=== PATIENT | male | born 1975 | race Caucasian/White ===

== ENCOUNTER 2019-12-25 12:53 | Emergency (ER) | payer MEDICAID, SELFPAY ==
[2019-12-25 13:01] VITALS: BP 135/78; PULSE 88; RESP 15; TEMP 36.6; O2SAT 100
--- NOTE | 2019-12-25 13:15 | W.ED.GENAD ---
Discharge Plan Disposition Patient Disposition: HOME Condition: Stable Discharge Details Clinical Impression: Lumbago with sciatica, left side Primary Care Provider: [facility] Provider: Cheri Watson Home Meds and New Rx's Prescriptions: New ketorolac 10 mg tablet 10 mg PO Q8H PRN (Reason: pain) 4 Days Qty: 10 RF: 0 diazepam 2 mg tablet 2 mg PO BID PRN2 Days Qty: 4 RF: 0 Discharge Instructions Instructions: Low Back Strain (ED) Additional Instructions: Follow up with primary care provider in 3-5 days. Return to ED sooner if any worsening or concerns. Increase oral fluids. Please take Tylenol or Ibuprofen with food every 4-6 hours as needed for pain and swelling. Take medications as prescribed. You are placed on a care management list to help establish care with primary care provider. Discharge Data Discharge Date/Time-TO BE ENTERED AT DEPARTURE: 12/25/19 13:25 Medical Decision Making 35-year-old male presents to the ED with lower back pain which radiates into his left buttock which began yesterday. 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 He denies any saddle anesthesia, no nausea, no numbness tingling in his legs no loss of bowel or bladder control. He is requesting some Toradol and diazepam to go home. He does not have a PCP at this time. Will place him on a care management list to establish care. Patient was given a to go bottle of tramadol. Prescription given for diazepam No. 4 tablets and Toradol as patient requested. Placed on care management list to establish primary care provider. HPI General Mode of arrival: ambulatory. Date/Time Provider Initiated Documentation: 12/25/19 13:08. Limitations to Documentation: no limitations. Information obtained by: patient. HPI Narrative: 35-year-old male presents to the ED with lower back pain which radiates into his left buttock which began yesterday. 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 He denies any saddle anesthesia, no nausea, no numbness tingling in his legs no loss of bowel or bladder control. He is requesting some Toradol and diazepam to go home. He does not have a PCP at this time. Will place him on a care management list to establish care. Related Data Home Medications Medication Instructions Recorded Confirmed diazepam 2 mg PO BID PRN 2 Days #4 tab 12/25/19 ketorolac 10 mg PO Q8H PRN 4 Days #10 tab 12/25/19 Previous Rx's Medication Instructions Recorded diazepam 2 mg PO BID PRN 2 Days #4 tab 12/25/19 ketorolac 10 mg PO Q8H PRN 4 Days #10 tab 12/25/19 Allergies Allergy/AdvReac Type Severity Reaction Status Date / Time cyclobenzaprine Allergy Hard to Unverified 12/25/19 13:06 [From Flexeril] breathe General Stated Complaint: Nk/Back Pain IRAIDA: 4 Review of Systems All systems reviewed & are unremarkable except as noted in HPI and below Constitutional Constitutional: Reports as per HPI, Denies chills, Denies fever(s), Denies frequent falls, Denies headache(s), Denies malaise and Denies weakness ENT Ears, Nose, Mouth, and Throat: Denies headache(s) Musculoskeletal Musculoskeletal: Reports as per HPI and Reports back pain (Lower lumbar radiating into left buttock denies any numbness tingling) Neurologic Neurologic: Denies frequent falls, Denies headache(s) and Denies weakness [facility] Social History Smoking/Tobacco Use Status: Current every day Smoking risk assessment performed?: Yes Alcohol Intake: never Substance use type: does not use Do you feel safe at home: Yes Do you feel safe in your relationship?: Yes Exam Narrative Exam Narrative: Constitutional: Alert and oriented x3. Appears stated age. Normal body habitus. Head: Normocephalic, no trauma. Chest: RRR, Normal S1, S2, distal pulses intact. Resp: Lungs clear to auscultation bilaterally, no wheezes, rales, or rhonchi. Musculoskeletal: Normal gait, 5/5 strength to all four extremities. Skin: No suspicious rashes or lesions. Capillary refill less than 2 sec. Neurologic: Cranial nerves II-XII intact. Alert and oriented x 3. DTR's intact. Course Vital Signs Vital signs: Vital Signs Temperature 36.6 C 12/25/19 13:01 Pulse 88 12/25/19 13:01 Respiratory Rate 15 12/25/19 13:01 Blood Pressure 135/78 12/25/19 13:01 Pulse Oximetry 100 12/25/19 13:01 Temperature 36.6 C 12/25/19 13:01 Temperature Source Temporal Artery Scan 12/25/19 13:01 Pulse 88 12/25/19 13:01 Respiratory Rate 15 12/25/19 13:01 Respiratory Effort Non-Labored 12/25/19 13:04 Blood Pressure 135/78 12/25/19 13:01 Blood Pressure Position Sitting 12/25/19 13:01 Pulse Oximetry 100 12/25/19 13:01 Oxygen Delivery Method Room Air 12/25/19 13:01 Oxygen Flow Rate 0 12/25/19 13:01 Pain Level 7 12/25/19 13:06
[2019-12-25 13:27] VITALS: BP 135/78; PULSE 88; RESP 15; TEMP 36.6; O2SAT 100
--- NOTE | 2019-12-26 18:50 | CMPROGNOTE_ITS ---
- If Service Date Differs Date of service: 12/26/19 Time of Service: 18:50 Care Management Progress Note Son is seen in the ED on 12/25/19 for lumbago with sciatica on the left side. At the request of ED provider, HARITHA coordinates a referral to Nicole Ozuna np, on-call provider, of [facility], to assist Son in obtaining a follow up appointment and in establishing care with a PCP. He has Medicaid for insurance.
== END 2019-12-25 13:25 | disposition home or self-care (01) ==
PROVIDERS: Emergency Provider Registered Nurse Emergency
DX: M54.42 Lumbago with sciatica, left side (principal)
CPT/HCPCS: 99283

== ENCOUNTER 2019-12-28 10:37 | Emergency (ER) | payer MEDICAID, SELFPAY ==
[2019-12-28 10:40] VITALS: BP 123/55; PULSE 91; TEMP 36.7; O2SAT 98
--- NOTE | 2019-12-28 10:50 | ED.GENADUL_ITS ---
Discharge Plan Disposition Patient Disposition: HOME Condition: Stable Discharge Details Clinical Impression: Lumbago with sciatica, left side [facility] Home Meds and New Rx's Prescriptions: New ketorolac 10 mg tablet 10 mg PO Q6H PRN7 Days Qty: 30 RF: 0 diazepam 10 mg tablet 10 mg PO BID PRN (Reason: muscle spasm) Qty: 14 RF: 0 Discontinued diazepam 2 mg tablet 2 mg PO BID RF: 0 ketorolac 10 mg tablet 10 mg PO Q8H PRN (Reason: pain) 4 Days Qty: 10 RF: 0 Discharge Instructions Instructions: Back Pain (ED), Lower Back Exercises (ED) Additional Instructions: follow up as scheduled with your primary care provider if you have severe worsening pain, difficulty urinating or worsening weakness return to the emergency department Stand Alone Forms: Physical Therapy Referral Medical Decision Making 44 yo male who states he gets flares of lower back pain comes in with continued back pain. Was seen in the ED on 12/24 and put on diazepam and toradol which have helped but would like more as he is out and can't get into his pcp until next week. Denies fevers, falls/trauma, difficulty urinating or with bowel movements, no weakness, no ivdu. localizes the pain to the left lower back, has no saddle anesthesia, normal strength and sensation in the legs and normal pulses. Exam and history seems most likely from musculoskeletal pain, no findings to suggest sea or cauda equina and do not feel mri indicated. HAs no findings to suggest fx or osteo so do not feel xray or ct indicated. Will continue toradol and diazepam and start PT, f/u with pcp and return precautions given Differential Diagnosis Differential Diagnosis: strain, disc herniation, spasm HPI General Mode of arrival: ambulatory . Date/Time Provider Initiated Documentation: 12/28/19 10:38 . Limitations to Documentation: no limitations . Information obtained by: patient . History of Present Illness 44 year old M presents to the emergency department with the chief complaint of low back pain, described as moderate, and it has been constant. No relieving factors improve symptom(s), No exacerbating factors reported . Patient notes no other symptoms.. Related Data Home Medications Medication Instructions Recorded Confirmed diazepam 10 mg PO BID PRN #14 tab 12/28/19 ketorolac 10 mg PO Q6H PRN 7 Days #30 tab 12/28/19 Previous Rx's Medication Instructions Recorded diazepam 10 mg PO BID PRN #14 tab 12/28/19 ketorolac 10 mg PO Q6H PRN 7 Days #30 tab 12/28/19 Allergies Allergy/AdvReac Type Severity Reaction Status Date / Time cyclobenzaprine Allergy Hard to Unverified 12/28/19 10:43 [From Flexeril] breathe General Stated Complaint: Nk/Back Pain IRAIDA: 3 Review of Systems All systems reviewed & are unremarkable except as noted in HPI and below Constitutional Constitutional: Denies chills, Denies fever(s) and Denies weakness Cardiovascular Cardiovascular: Denies chest pain and Denies dyspnea Respiratory Respiratory: Denies cough and Denies dyspnea Gastrointestinal Gastrointestinal: Denies abdominal pain, Denies nausea and Denies vomiting Genitourinary Genitourinary: Denies dysuria Musculoskeletal Musculoskeletal: Denies joint swelling Integumentary/Breasts Skin/Breast: Denies rash Neurologic Neurologic: Denies weakness Psychiatric Psychiatric: Denies depression [facility] Social History Smoking/Tobacco Use Status: Current every day Smoking risk assessment performed?: Yes Alcohol Intake: never Substance use type: does not use Do you feel safe at home: Yes Do you feel safe in your relationship?: Yes Exam Const General: no acute distress Orientation: alert HENMT Head: normal to inspection Ears: external ears normal General nose exam: external nose normal Mouth: moist mucous membranes Eyes General: appearance normal, both eyes and all related structures Neck Neck: normal visual inspection Resp Effort & Inspection: normal respiratory effort and able to speak in complete sentences Cardio Rate: regular rate Back/Spine/Pelvis Back: no CVA tenderness Skin General skin exam: no rashes or lesions noted Neuro General: patient alert and patient oriented x3 Extrem General: normal to inspection Psych Mental Status: mental status grossly normal Course Vital Signs Vital signs: Vital Signs Temperature 36.7 C 12/28/19 10:40 Pulse 91 H 12/28/19 10:40 Blood Pressure 123/55 L 12/28/19 10:40 Pulse Oximetry 98 12/28/19 10:40 Temperature 36.7 C 12/28/19 10:40 Temperature Source Temporal Artery Scan 12/28/19 10:40 Pulse 91 H 12/28/19 10:40 Respiratory Effort Non-Labored 12/28/19 10:45 Blood Pressure 123/55 L 12/28/19 10:40 Blood Pressure Position Sitting 12/28/19 10:40 Pulse Oximetry 98 12/28/19 10:40 Oxygen Delivery Method Room Air 12/28/19 10:40 Oxygen Flow Rate 0 12/28/19 10:40 Pain Level 8 12/28/19 10:40
== END 2019-12-28 10:57 | disposition home or self-care (01) ==
LOC: ER 10:51
PROVIDERS: Emergency Provider Emergency Medicine
DX: M54.42 Lumbago with sciatica, left side (principal)
CPT/HCPCS: 99283

== ENCOUNTER 2021-03-11 16:22 | Emergency (ER) | payer MEDICAID, SELFPAY ==
[2021-03-11 16:25] VITALS: BP 128/80; PULSE 81; RESP 18; TEMP 37; O2SAT 98
--- NOTE | 2021-03-11 16:50 | W.ED.GENAD ---
Discharge Plan Disposition Patient Disposition: HOME Condition: Stable Discharge Details Clinical Impression: Trouble in sleeping, Anxiety Primary Care Provider: Unknown,Unknown ED Provider: Cheri Watson Home Meds and New Rx's Prescriptions: New melatonin 5 mg capsule 5 mg PO QHS PRN (Reason: sleep) 14 Days Qty: 14 RF: 0 diazepam 2 mg tablet 2 mg PO BID PRN (Reason: anxiety) Qty: 7 RF: 0 No Action diazepam 10 mg tablet 10 mg PO BID PRN (Reason: muscle spasm) Qty: 14 RF: 0 clonazepam 1 mg tablet 1 mg PO TID RF: 0 prazosin 5 mg capsule 5 mg PO DAILY RF: 0 olanzapine 2.5 mg tablet 2.5 mg PO DAILY RF: 0 Discharge Instructions Instructions: Grief and Loss (ED), Insomnia (ED), Anxiety (ED) Additional Instructions: Please take the melatonin approximately 30 minutes prior to bedtime he may get this [id number] and I have also sent a prescription to the pharmacy on file. Take the diazepam twice daily as needed for anxiety. The prescriptions were sent to [facility] in [place]. Please follow-up with your psychologist regarding medication changes if needed. Follow up with primary care provider in 3-5 days. Return to ED sooner if any worsening, any thoughts of harming yourself or others, or concerns. Increase oral fluids. Discharge Data Discharge Date/Time-TO BE ENTERED AT DEPARTURE: 03/11/21 17:07 Medical Decision Making 46-year-old male presents to the ER chief complaint difficulty sleeping for the last 4 days, increasing anxiety. Patient reports that he recently lost his son and his father just he is in town for on Tuesday. Reports that he has a past medical history of PTSD and anxiety. He takes olanzapine, prazosin and clonazepam which he reports are not doing anything for me. He denies any suicidal ideation or homicidal ideation. He has not done anything in the last couple of days to hurt himself. He denies any drugs or alcohol and denies taking any extra of his medications. He is requesting something to sleep. He denies any other associated symptoms. He does not want to speak with mental health at this time. Patient states he has an appointment with provider in [place] on the of this month. He is requesting medication to help him sleep for the next few days until the on Tuesday. At this time he is denying any suicidal ideation or homicidal ideation he does not wish to speak with mental health. I did discuss different strategies to help sleep including melatonin did offer hydroxyzine which patient states that he has taken before. He is requesting that I change his medications. I did discuss that that would be better to be done through his psychiatric provider from [place] or his primary care provider. I did give him approximately 7 tablets of 2 mg of diazepam and prescription sent for 5 mg of melatonin to aid in sleep. Did discuss strict return instructions to return if any worsening anxiety, thoughts of harming himself or others or any concerns. HPI General Mode of arrival: ambulatory. Date/Time Provider Initiated Documentation: 03/11/21 16:23. Limitations to Documentation: no limitations. Information obtained by: patient, RN notes reviewed and old records reviewed. HPI Narrative: 46-year-old male presents to the ER chief complaint difficulty sleeping for the last 4 days, increasing anxiety. Patient reports that he recently lost his son and his father just he is in town for on Tuesday. Reports that he has a past medical history of PTSD and anxiety. He takes olanzapine, prazosin and clonazepam which he reports are not doing anything for me. He denies any suicidal ideation or homicidal ideation. He has not done anything in the last couple of days to hurt himself. He denies any drugs or alcohol and denies taking any extra of his medications. He is requesting something to sleep. He denies any other associated symptoms. He does not want to speak with mental health at this time. Related Data Home Medications Medication Instructions Recorded Confirmed diazepam 10 mg PO BID PRN #14 tab 12/28/19 clonazepam 1 mg PO TID 03/11/21 03/11/21 diazepam 2 mg PO BID PRN #7 tab 03/11/21 melatonin 5 mg PO QHS PRN 14 Days #14 cap 03/11/21 olanzapine 2.5 mg PO DAILY 03/11/21 03/11/21 prazosin 5 mg PO DAILY 03/11/21 03/11/21 Previous Rx's Medication Instructions Recorded diazepam 10 mg PO BID PRN #14 tab 12/28/19 diazepam 2 mg PO BID PRN #7 tab 03/11/21 melatonin 5 mg PO QHS PRN 14 Days #14 cap 03/11/21 Allergies Allergy/AdvReac Type Severity Reaction Status Date / Time cyclobenzaprine Allergy Hard to Unverified 03/11/21 16:44 [From Flexeril] breathe General Stated Complaint: PsychEval IRAIDA: 2 Review of Systems All systems reviewed & are unremarkable except as noted in HPI and below Psychiatric Psychiatric: Reports abnormal sleep pattern, Reports anxiety, Denies auditory hallucinations, Reports panic attacks, Denies tactile hallucinations, Denies homicidal ideation and Denies suicidal ideation PFSH All Active Problems (Updated 03/11/21 @ 17:01 by Cheri Watson) Trouble in sleeping (Acute) Anxiety (Chronic) Social History Smoking/Tobacco Use Status: Current every day Smoking risk assessment performed?: Yes Alcohol Intake: never Substance use type: does not use Do you feel safe at home: Yes Do you feel safe in your relationship?: Yes Exam Narrative Exam Narrative: Constitutional: Alert and oriented x3. Appears stated age. Normal body habitus. Head: Normocephalic, no trauma. Eyes: Pupils PERRL, Red reflex noted, EOM's intact. Eyelids symmetrical without lesions, discharge, or swelling. ENT: Bilateral TM's WNL, External ear normal to inspection, no mastoid TTP, swelling, or erythema, Nasal turbinates WNL, no nasal discharge. Normal dentition, Posterior pharynx WNL, no exudate. Chest: RRR, Normal S1, S2, distal pulses intact. Resp: Lungs clear to auscultation bilaterally, no wheezes, rales, or rhonchi. Abdomen: Soft, non-distended, Normoactive bowel sounds all 4 quads. Musculoskeletal: Normal gait, 5/5 strength to all four extremities. Skin: No suspicious rashes or lesions. Capillary refill less than 2 sec. Neurologic: Cranial nerves II-XII intact. Alert and oriented x 3. Motor: No deficits noted. Sensory: Intact bilaterally all 4 extremities. Reflexes: DTR's intact bilaterally.. Hematologic/Lymphatic: No ecchymosis, no lymphadenopathy. Psych Appearance: grossly normal Speech and Movement: pressured speech Mood: anxious mood Attitude: cooperative Thought Process: flight of ideas Thought Content: normal and suicidality Insight: insight good Judgment: judgment good Course Vital Signs Vital signs: Vital Signs Temperature 37 C 03/11/21 16:25 Pulse 81 03/11/21 16:25 Respiratory Rate 18 03/11/21 16:25 Blood Pressure 128/80 03/11/21 16:25 Pulse Oximetry 98 03/11/21 16:25 Temperature 37 C 03/11/21 16:25 Temperature Source Skin 03/11/21 16:25 Pulse 81 03/11/21 16:25 Respiratory Rate 18 03/11/21 16:25 Respiratory Effort 03/11/21 16:40 Blood Pressure 128/80 03/11/21 16:25 Pulse Oximetry 98 03/11/21 16:25 Oxygen Delivery Method Room Air 03/11/21 16:25 Oxygen Flow Rate 0 03/11/21 16:25 Pain Level 0 03/11/21 16:25
== END 2021-03-11 17:07 | disposition home or self-care (01) ==
PROVIDERS: Emergency Provider Registered Nurse Emergency
DX: F41.9 Anxiety disorder, unspecified (principal); G47.00 Insomnia, unspecified
CPT/HCPCS: 99283

== ENCOUNTER 2021-04-19 09:22 | Emergency (ER) | payer MEDICAID, SELFPAY ==
[2021-04-19 09:24] VITALS: BP 120/77; PULSE 81; RESP 16; TEMP 36.6; O2SAT 97
--- NOTE | 2021-04-19 09:31 | ED.GENADUL_ITS ---
Discharge Plan Disposition Patient Disposition: HOME Condition: Improving Discharge Details Clinical Impression: Major depression Primary Care Provider: Unknown,Unknown ED Provider: Le Donovan Home Meds and New Rx's Prescriptions: Continued prazosin 5 mg capsule 5 mg PO HS 0RF olanzapine 5 mg tablet 5 mg PO DAILY 0RF Label Comments: TAKE ONE TABLET BY MOUTH EVERY DAY hydroxyzine HCl 50 mg tablet 50 mg PO HS 0RF Label Comments: TAKE ONE TABLET BY MOUTH FOUR TIMES A DAY risperidone 3 mg tablet 3 mg PO HS 0RF Label Comments: TAKE ONE TABLET BY MOUTH EVERY EVENING diazepam 10 mg tablet 10 mg PO TID 0RF Label Comments: TAKE ONE TABLET BY MOUTH THREE TIMES A DAY NEEDED buprenorphine-naloxone 8-2 mg tablet, sublingual 3 tab SUBLINGUAL DAILY 0RF Label Comments: PLACE THREE TABLETS UNDER THE TONGUE EVERY DAY Discharge Instructions Instructions: Depression (ED) Additional Instructions: 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 Call [facility] tomorrow at [phone] for follow-up. Return immediately to the emergency department if you develop any worsening or new concerning symptoms. Discharge Data Discharge Date/Time-TO BE ENTERED AT DEPARTURE: 04/19/21 19:19 Discharge Physician: Le Donovan Medical Decision Making 1000 -- 46-year-old male with a history of anxiety, depression, paranoid schizophrenia and narcotic abuse in remission currently on Suboxone for the past several years presents from home for depression for several weeks. He has not taken his meds for a few days but is willing to restart them. Vitals within normal limits. Patient appears alert and oriented and cooperative. Patient states he has thoughts of suicide at times and denies a current suicidal plan but states I could have access to firearms if I wanted to. We will obtain screening labs for medical clearance and have mental health evaluate. As patient has not had any of his medications, will order his scheduled medications. Will hold on Valium as long as possible pending mental health evaluation. 1130 -- Labs reviewed. Patient medically cleared. 1500 -- mental health tried to evaluate but patient too sleepy, likely secondary to taking his scheduled Valium. They will reevaluate at 5 PM. 1730 -- Patient evaluated by mental health --he is currently denying any suicidal or homicidal ideation and he is cleared for discharge. Pt states he feels much better after receiving his meds here and would like to be discharged. Patient states he cannot return to his apartment due to the no stalking order from his fianc?e but plans to call [address] to sleep tonight[address] He denies having any access to firearms where he will be staying tonight. Patient states he can go to [facility] tomorrow for his medication. He is requesting a dose of Suboxone for the morning if possible. [facility] [facility] states that patient will follow up with him tomorrow. 1829 -- Patient's jitendra has called the hospital multiple times over the last few hours and she was advised that pt cannot take the call pending mental health evaluation. She is currently on the phone at this time and patient is willing to speak with her now that he cleared for discharge. 1899 -- Patient was given his Suboxone dose to go for tomorrow morning. He is advised to go to [facility] tomorrow for the remainder of his medications. He was given [facility] number for follow-up tomorrow. Usual and customary return precautions given prior to discharge. Medical Records Medical records reviewed: Yes I reviewed the patient's medical records. Lab Data Lab results reviewed: Yes I reviewed the patient's lab results. Labs: Laboratory Tests Range/Units 04/19/21 04/19/21 04/19/21 10:25 10:35 10:35 WBC (4.4-10.8) 10^3/uL 3.73 L RBC (4.36-5.78) 10^6/uL 3.94 L Hgb (13.5-17.5) g/dL 12.9 L Hct (40.0-50.0) % 40.0 MCV (80-95) fL 101.5 H MCH (27.0-33.0) pg 32.7 MCHC (32.0-36.0) % 32.3 RDW (11.8-14.1) % 14.5 H Plt Count (130-400) 10^3/uL 155 MPV (8.0-11.0) fL 9.0 Immature Gran % 0.3 Neutrophils % 51.2 Lymphocytes % 30.0 Monocytes % 16.4 Eosinophils % 1.3 Basophils % 0.8 Nucleated RBC % % 0 Absolute Neutrophils (1.2-6.7) 10^3/uL 1.91 Absolute Lymphocytes (1.2-3.4) 10^3/uL 1.12 L Absolute Monocytes (0.1-0.8) 10^3/uL 0.61 Absolute Eosinophils (0.0-0.7) 10^3/uL 0.05 Absolute Basophils (0.0-0.2) 10^3/uL 0.03 Sodium (136-145) mmol/L 141 Potassium (3.5-5.1) mmol/L 4.1 Chloride (98-107) mmol/L 105 Carbon Dioxide (21.0-32.0) mmol/L 29.9 Anion Gap (3-11) mmol/L 6.1 BUN (7-18) mg/dL 11 Creatinine (0.70-1.30) mg/dL 1.0 Estimated GFR/1.73 m2 (mL/min/1.73m2) >= 60.00 Glucose (74-106) mg/dL 108 H Calcium (8.5-10.1) mg/dL 8.1 L Total Bilirubin (0.2-1.0) mg/dL 0.4 AST (15-37) U/L 56 H ALT (16-63) U/L 53 Alkaline Phosphatase (46-116) U/L 83 Total Protein (6.4-8.2) g/dL 7.0 Albumin (3.4-5.0) g/dL 3.5 TSH (0.36-3.74) uIU/mL 2.48 Urine Opiates Screen (Negative) Urine Methadone Screen (Negative) Ur Barbiturates Screen (Negative) Ur Tricyclics Screen (Negative) Ur Amphetamines Screen (Negative) U Benzodiazepines Scrn (Negative) Urine Cocaine Screen (Negative) Ur THC Screen (Negative) Ethyl Alcohol (<10) mg/dL < 3.0 COVID-19 Source Nasal/Nares SARS-CoV-2 (PCR) (Negative) Negative Range/Units 04/19/21 10:50 WBC (4.4-10.8) 10^3/uL RBC (4.36-5.78) 10^6/uL Hgb (13.5-17.5) g/dL Hct (40.0-50.0) % MCV (80-95) fL MCH (27.0-33.0) pg MCHC (32.0-36.0) % RDW (11.8-14.1) % Plt Count (130-400) 10^3/uL MPV (8.0-11.0) fL Immature Gran % Neutrophils % Lymphocytes % Monocytes % Eosinophils % Basophils % Nucleated RBC % % Absolute Neutrophils (1.2-6.7) 10^3/uL Absolute Lymphocytes (1.2-3.4) 10^3/uL Absolute Monocytes (0.1-0.8) 10^3/uL Absolute Eosinophils (0.0-0.7) 10^3/uL Absolute Basophils (0.0-0.2) 10^3/uL Sodium (136-145) mmol/L Potassium (3.5-5.1) mmol/L Chloride (98-107) mmol/L Carbon Dioxide (21.0-32.0) mmol/L Anion Gap (3-11) mmol/L BUN (7-18) mg/dL Creatinine (0.70-1.30) mg/dL Estimated GFR/1.73 m2 (mL/min/1.73m2) Glucose (74-106) mg/dL Calcium (8.5-10.1) mg/dL Total Bilirubin (0.2-1.0) mg/dL AST (15-37) U/L ALT (16-63) U/L Alkaline Phosphatase (46-116) U/L Total Protein (6.4-8.2) g/dL Albumin (3.4-5.0) g/dL TSH (0.36-3.74) uIU/mL Urine Opiates Screen (Negative) Negative Urine Methadone Screen (Negative) Negative Ur Barbiturates Screen (Negative) Negative Ur Tricyclics Screen (Negative) Negative Ur Amphetamines Screen (Negative) Negative U Benzodiazepines Scrn (Negative) Positive A Urine Cocaine Screen (Negative) Negative Ur THC Screen (Negative) Negative Ethyl Alcohol (<10) mg/dL COVID-19 Source SARS-CoV-2 (PCR) (Negative) HPI General Mode of arrival: EMS . Date/Time Provider Initiated Documentation: 04/19/21 09:31 . Limitations to Documentation: no limitations . Information obtained by: patient . HPI Narrative: Patient is a 46-year-old male with a history of anxiety, depression, paranoid schizophrenia, narcotic abuse in remission on Suboxone for several years presents for depression for several weeks with feelings of wanting to harm himself. Patient states he called the ambulance today. He states he has a no stalking order from his fianc?e due to verbal threats he made towards her. Patient states he has had significant loss in his life recently with the of his father and a divorce 1 year ago. Patient states these losses are making him feel there is no point in living anymore . He states he has had a previous suicide attempt a couple years ago after he was released from long-term in which he overdosed on pills and spent a few days in ICU in [place]. When asked if patient has a specific suicidal plan, he denies this. When asked if patient has access to firearms he stated I could get a gun if I wanted to . He states he has been verbally aggressive towards his fianc?e and at times has thought about physically hurting her but states I would never do that. Patient also stated that his fianc?e will likely call the ED multiple times today as she still loves me and wants to be with me but she wants me to get help. Patient also sta dinah that he has not taken his Suboxone or other psychiatric meds for the past few days. 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 Patient also states the rest of his medications are in his apartment but he cannot go there at this time due to the no stalking order and inability to be within 300 feet of his fiance. Patient is also unvaccinated for COVID and did have a positive Covid test on April 04. He states he has not had any symptoms at that time and denies any other symptoms at this time. Patient states that he was only given 2 days worth of his psychiatric medications by his psychiatrist so that he would check himself into the hospital to be placed at a psychiatric facility for his symptoms. Related Data Home Medications Medication Instructions Recorded Confirmed prazosin 5 mg capsule 5 mg PO HS 03/11/21 04/19/21 buprenorphine 8 mg-naloxone 2 mg 3 tab SUBLINGUAL DAILY 04/19/21 04/19/21 sublingual tablet diazepam 10 mg tablet 10 mg PO TID 04/19/21 04/19/21 hydroxyzine HCl 50 mg tablet 50 mg PO HS 04/19/21 04/19/21 olanzapine 5 mg tablet 5 mg PO DAILY 04/19/21 04/19/21 risperidone 3 mg tablet 3 mg PO HS 04/19/21 04/19/21 Allergies Allergy/AdvReac Type Severity Reaction Status Date / Time cyclobenzaprine Allergy Hard to Unverified 04/19/21 09:40 [From Flexeril] breathe General Stated Complaint: PsychEval IRAIDA: 2 Review of Systems All systems reviewed & are unremarkable except as noted in HPI and below Constitutional Constitutional: Reports as per HPI, Denies chills, Denies excessive sweating, Denies fatigue and Denies fever(s) Eyes Eyes: Denies blurry vision ENT Ears, Nose, Mouth, and Throat: Denies dizziness, Denies sore throat and Denies throat swelling Cardiovascular Cardiovascular: Denies chest pain and Denies dyspnea Respiratory Respiratory: Denies cough and Denies dyspnea Gastrointestinal Gastrointestinal: Denies abdominal pain, Denies diarrhea and Denies vomiting Genitourinary Genitourinary: Denies hematuria and Denies dysuria Musculoskeletal Musculoskeletal: Denies back pain and Denies numbness Integumentary/Breasts Skin/Breast: Denies lesions and Denies rash Neurologic Neurologic: Denies dizziness, Denies localized weakness and Denies numbness Psychiatric Psychiatric: Reports depression, Reports hopelessness, Reports homicidal ideation and Reports suicidal ideation Endocrine Endocrine: Denies excessive sweating and Denies fatigue Hematologic/Lymphatic Hematologic/Lymphatic: Denies easy bruising and Denies lymphadenopathy Allergic/Immunologic Allergic/Immunologic: Denies throat swelling PFSH All Active Problems (Updated 04/19/21 @ 18:49 by Le Donovan DO) Major depression (Chronic) Medical History (Updated 04/19/21 @ 18:49 by Le Donovan DO) Anxiety Depression Narcotic abuse in remission Paranoid schizophrenia Social History Smoking/Tobacco Use Status: Current every day Tobacco Type: cigarettes Smoking risk assessment performed?: Yes Alcohol Intake: never Drug use: Never Substance use type: does not use Do you feel safe at home: Yes Do you feel safe in your relationship?: Yes Exam Const General: cooperative and healthy appearing Orientation: alert, awake and oriented x3 HENMT Head: normal to inspection Ears: hearing grossly normal bilaterally, external ears normal and TM's normal bilaterally General nose exam: external nose normal Face and sinus: normal facial exam Mouth: oral mucosae normal Teeth and gingiva: dentition normal Throat: posterior oropharynx normal Eyes General: appearance normal, both eyes and all related structures Eyelids: eyelids normal Pupils: PERRL EOM: EOM intact bilaterally Neck Neck: normal visual inspection Lymphatic: no lymphadenopathy noted Chest Chest: normal inspection of the chest Resp Effort & Inspection: normal respiratory effort and able to speak in complete sentences Auscultation: clear to auscultation bilaterally Cardio Rate: regular rate Rhythm: regular rhythm GI Inspection: normal to inspection Palpation: soft, not firm, no guarding, no hepatosplenomegaly, no masses and nontender Auscultation: normal bowel sounds Back/Spine/Pelvis Back: no CVA tenderness Skin General skin exam: no rashes or lesions noted Neuro General: patient alert and patient awake Cognition: normal cognition Speech: speech normal Gait: normal gait Motor: muscle tone normal throughout Sensory Exam: no sensory deficits noted Extrem General: normal to inspection, full ROM and capillary refill normal Psych Appearance: grossly normal Mental Status: mental status grossly normal Speech and Movement: speech and movement normal Affect: normal affect Thought Process: normal
[2021-04-19 10:43] LABS: Source Nasal/Nares
[2021-04-19 10:47] LABS: Abs Immature Grans 0.01 10^3/uL (0.0-0.06); Absolute Basophil Count 0.03 10^3/uL (0.0-0.2); Absolute Eosinophil Count 0.05 10^3/uL (0.0-0.7); Absolute Lymphocyte Count 1.12 10^3/uL (1.2-3.4); Absolute Monocyte Count 0.61 10^3/uL (0.1-0.8); Absolute Neutrophil Count 1.91 10^3/uL (1.2-6.7); Basophils % 0.8; Eosinophils % 1.3; HGB 12.9 g/dL (13.5-17.5); Immature Grans % 0.3; MCH 32.7 pg (27.0-33.0); MCHC 32.3 % (32.0-36.0); MCV 101.5 fL (80-95); Monocytes % 16.4; Neutrophils % 51.2; Nucleated RBC 0 %; Platelet Count 155 10^3/uL (130-400); RBC 3.94 10^6/uL (4.36-5.78); RDW 14.5 % (11.8-14.1); RDW-SD 54.4 fL; WBC 3.73 10^3/uL (4.4-10.8)
[2021-04-19] MEDS: Buprenorphine/Naloxone 8 mg/2 mg FILM 3 EACH SL ×2 (10:51→19:09)
[2021-04-19 11:05] LABS: ALT 53 U/L (16-63); AST 56 U/L (15-37); Albumin 3.5 g/dL (3.4-5.0); Alkaline Phosphatase 83 U/L (46-116); Anion Gap 6.1 mmol/L (3-11); BUN 11 mg/dL (7-18); Bilirubin, Total 0.4 mg/dL (0.2-1.0); CO2 29.9 mmol/L (21.0-32.0); Calcium 8.1 mg/dL (8.5-10.1); Chloride 105 mmol/L (98-107); Glucose 108 mg/dL (74-106); Potassium 4.1 mmol/L (3.5-5.1); Sodium 141 mmol/L (136-145); TSH 2.48 uIU/mL (0.36-3.74)
[2021-04-19 11:06] LABS: ETHANOL BLOOD < 3.0 mg/dL (<10)
[2021-04-19 11:16] LABS: *AMPHETAMINES SCREEN URINE Negative (Negative); *BARBITURATES SCREEN URINE Negative (Negative); *BENZODIAZEPINES SCREEN URINE Positive (Negative); Cannabinoids THC Negative (Negative); Cocaine Screen,Urine Negative (Negative); METHADONE URINE SCREEN Negative (Negative); OPIATES URINE SCREEN Negative (Negative)
[2021-04-19 11:21] LABS: COVID-19 PCR Negative (Negative)
[2021-04-19 11:22] LABS: Tricyclic Antidepressants Negative (Negative)
--- NOTE | 2021-04-19 12:49 | NUR.NOTE ---
Nursing Note: Stefany Davies [phone]
--- NOTE | 2021-04-19 13:18 | NUR.NOTE ---
Nursing Note: Ronda, cousin called asking about the patient. Whether he was ok, awake, etc? I told her that I cannot give information out about patients without their permission. She gave me her phone number [phone]. Incidentally this is the same phone number as the fiance. Damaris Hopkins
[2021-04-19] MEDS: diazePAM 5 MG TAB 10 MG PO (13:58)
[2021-04-19] MEDS: OLANZapine 5 MG TAB PO (13:59)
--- NOTE | 2021-04-19 18:42 | PDOC.MHCN_ITS ---
Date of service: 04/19/21 Time of Service: 18:42 Mental Health Crisis Note Presenting Issue How did you arrive at the ED and why did you come: Client arrived at [facility] ED via ambulance stating that he was having a rough morning. He goes on to state that his psychiatrist at told him that he needed to come to ED for placement. 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 Precipitating Factors Client denies SI/HI to this software writer with no intent and plan. Disposition BEHAVIOR: Client is sleeping when this software writer arrives via zoom, however is woken up by bedside nurse and sits up and engages with this software writer. He is dressed in proper paper hospital attire and answers all questions that are asked of him. EYE CONTACT: Client makes minimal eye contact as his head is down the majority of the time during assessment. MOOD: Clients mood appears to be depressed although he is able to show good insight and appears to be goal oriented. AFFECT: Client has normal affect. APPETITE: Client states that his appetite has been good. SLEEP(trouble falling/staying asleep: Client states that he has slept all day since being at the ED, prior to coming to the ED he states that his sleep has been distorted only sleeping a few hours a night. Plan Client states that he does not feel like he needs inpatient treatment, his end goal is to get into a sober living house. Intake paperwork complete and release to talk to his psychiatrist is signed verbally. Client states that he does not have a place to go so he will call [facility] Client states that he will follow-up with his psychiatrist tomorrow and will also follow up [facility] and his clinical case manager there. Client will call [facility] for daily check in's tonight and tomorrow afternoon at 4:00 p.m. Signature Clinician's Name/Title: Idalia Huitron, [facility] Emergency Clinician
== END 2021-04-19 19:19 | disposition home or self-care (01) ==
PROVIDERS: Emergency Provider Physician Assistant
DX: F32.9 Major depressive disorder, single episode, unspecified (principal); F20.0 Paranoid schizophrenia; F11.11 Opioid abuse, in remission
CPT/HCPCS: 36415; 80053; 80307; 87635; 99284; 99285; 80320; 84443; 85025

== ENCOUNTER 2022-08-13 13:58 | Outpatient (CLI) | payer MEDICAID, SELFPAY ==
[2022-08-13 10:36] LABS: Abs Immature Grans 0.01 10^3/uL (0.0-0.06); Absolute Basophil Count 0.03 10^3/uL (0.0-0.2); Absolute Eosinophil Count 0.04 10^3/uL (0.0-0.7); Absolute Lymphocyte Count 1.55 10^3/uL (1.2-3.4); Absolute Monocyte Count 0.43 10^3/uL (0.1-0.8); Absolute Neutrophil Count 2.73 10^3/uL (1.2-6.7); Basophils % 0.6; Eosinophils % 0.8; HGB 14.8 g/dL (13.5-17.5); Immature Grans % 0.2; Lymphocytes % 32.4; MCH 33.3 pg (27.0-33.0); MCHC 33.6 % (32.0-36.0); MCV 99 fL (80-95); MPV 8.9 fL (8.0-11.0); Platelet Count 192 10^3/uL (130-400); RBC 4.45 10^6/uL (4.36-5.78); RDW 14.1 % (11.8-14.1); RDW-SD 51.3 fL; WBC 4.79 10^3/uL (4.4-10.8)
[2022-08-13 11:10] LABS: ALT 86 U/L (16-63); AST 65 U/L (15-37); Alkaline Phosphatase 92 U/L (46-116); BUN 16 mg/dL (7-18); Bilirubin, Total 0.6 mg/dL (0.2-1.0); Calcium 9.1 mg/dL (8.5-10.1); Calculated LDL 91 mg/dL (<100); Chloride 103 mmol/L (98-107); Cholesterol 145 mg/dL (<200); Estimated GFR 94.59 (mL/min/1.73m2); Glucose 93 mg/dL (74-106); HDL Cholesterol 41 mg/dL (40-60); Potassium 3.4 mmol/L (3.5-5.1); Sodium 139 mmol/L (136-145); TSH (W/Ref FT4) 3.08 uIU/mL (0.36-3.74); Total Protein 8.4 g/dL (6.4-8.2); Triglyceride 66 mg/dL (<150)
[2022-08-13 11:38] LABS: *AMPHETAMINES SCREEN URINE Positive (Negative); *BARBITURATES SCREEN URINE Negative (Negative); *BENZODIAZEPINES SCREEN URINE Positive (Negative); Cannabinoids THC Negative (Negative); Cocaine Screen,Urine Negative (Negative); METHADONE URINE SCREEN Negative (Negative); OPIATES URINE SCREEN Negative (Negative)
[2022-08-13 11:40] LABS: Tricyclic Antidepressants Negative (Negative)
[2022-08-13 11:42] LABS: Hemoglobin A1C 5.3 % (<5.7)
[2022-08-14 11:17] LABS: HIV-1/2 Ag & Ab Screen Negative (Negative)
[2022-08-16 09:38] LABS: HBs Antibody, Quant <3.1 mIU/mL (See Note); Hepatitis B Surface Ab Negative (See Note)
[2022-08-16 10:25] LABS: Hep B Core Antibody Negative (Negative)
[2022-08-16 10:52] LABS: Hepatitis B Surface Ag Negative (Negative)
[2022-08-16 11:26] LABS: Syphilis Serology (RPR) Negative (Negative)
[2022-08-16 11:38] LABS: HCV RNA Qualitative Detected (Undetected)
[2022-08-16 11:41] LABS: Hepatitis C Ab w Rflx HCV PCR Reactive (Negative)
[2022-08-17 22:28] LABS: HCV Genotype 1a (Undetected)
[2022-08-19 08:41] LABS: HCV RNA Detection Quantitative 76800 IU/mL (Undetected)
== END 2022-08-13 13:59 | disposition home or self-care (01) ==
LOC: LBO 13:59
PROVIDERS: Visit Provider Nurse Practitioner Adult Health
DX: Z11.4 Encounter for screening for human immunodeficiency virus [HIV] (principal); Z76.89 Persons encountering health services in other specified circumstances; Z13.220 Encounter for screening for lipoid disorders; Z13.1 Encounter for screening for diabetes mellitus; Z11.3 Encounter for screening for infections with a predominantly sexual mode of transmission; F11.21 Opioid dependence, in remission; B18.2 Chronic viral hepatitis C
CPT/HCPCS: 36415; 80053; 80061; 80307; 86704; 86706; 86803; 87340; 87389; 87491; 87522; 87591; 83036; 84443; 85025; 86592; 87521